=== PATIENT | female | born 1935 | race Caucasian/White ===

== ENCOUNTER 2016-04-18 08:00 | Emergency (ER) | payer OTHER, BC ==
[2016-04-18] MEDS ORDERED: CYCLOBENZAPRINE 10 MG TABLET PO ONE ×2 (08:10→08:14)
[2016-04-18] MEDS ORDERED: ACETAMINOPHEN 500 MG TABLET PO ONE ×2 (08:10→08:14)
[2016-04-18 08:11] VITALS: RESP 18; TEMP 96.1
--- NOTE | 2016-04-18 08:17 | PDOC ---
Fall HPI - General Chief Complaint: Fall Stated Complaint: LEFT SHOULER PAIN/RADIATING UP TO NECK Date Seen by Provider: 04/18/16 Time Seen by Provider: 08:11 Source: POSITIVE: Patient Exam Limitations: POSITIVE: No limitations Nurse's Notes Reviewed & Considered: Yes - History of Present Illness Initial Comments: Ms Mata is a very nice 81 year old woman who suffered a mechanical fall 1 week ago in her home, she lost her footing and fell forward onto the counter, her left shoulder landing in a gutierrez of burritos. She did not hit her head, she did not lose consciousness, but has had aching pain to the left shoulder ever since. She has no numbness, no tingling, no weakness to her left arm. She takes aspirin for the pain, which helps slightly. The pain is mostly in the anterior shoulder, but is now over the top of the shoulder radiating into the muscles of her neck. She was shovelling snow off her walkways the next day after her fall. Have you received a tetanus shot in the past 10 years?: Unknown - Patient Home Medications Home Medications: Home Medications Calcium 600 + Vit D 400 Caplet 1 each PO BID tab 05/06/11 Gluc Juan/MSM/Magnesium/Vit C [Glucosamine Complex-Msm Cap] 1 each PO BID cap 04/02 Multivit with Calcium,Iron,Min [Women's One Daily] 1 tab ORAL QD tab 05/06/11 Aspirin [[place] Aspirin] 81 mg PO DAILY tab 05/20/13 Ibandronate Sodium [Boniva] 3 mg IV [id number] ml 04/12/14 Cyclobenzaprine HCl [Flexeril] 10 mg PO TID PRN #30 tab 04/18/16 - Patient Allergies Allergies/Adverse Reactions: Allergies Allergy/AdvReac Type Severity Reaction Status Date / Time No Known Allergies Allergy Verified 04/18/16 08:05 Past Medical History - heen HEENT History: Cataracts Cardiovascular History: Other (please comment) Additional Cardiovasular History: LVH/DIASTOLIC DYSFORMATION/ MITRAL INSUFFICIENCY/ 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 FEELS BETTER NOW Gastrointestinal History: Denies History Genitourinary History: Denies History Additional Genitourinary History: INGESTED KEROSENE IN 1938, RENAL DAMAGE Endocrine History: Denies History Musculoskeletal History: Arthritis, Osteoporosis Prosthesis or Implant: No Neurological History: TIA Blood Disorders: Denies History Psychiatric History: Denies History History of Sexually Transmitted Diseases: No Cancer History: Denies History History of MDRO: No History of Other Communicable Diseases: No Alcohol Use: Rarely Substance Use Type: None Previous Surgical History: Yes Type / Date of Surgery: TONSILLECTOMY Anesthesia Reactions: No Malignant Hyperthermia: No Significant Family History: Heart disease, Cancer Past Medical History Reviewed: Reviewed - No Changes ROS - Limitations ROS Limitations: No Limitations Constitution: REPORTS: Denies Symptoms Cardiovascular: REPORTS: Denies Cardiac Symptoms Respiratory: REPORTS: Denies Resp Symptoms Neurological: REPORTS: Denies Neuro Symptoms Gastrointestinal: REPORTS: Denies GI Symptoms Endocrine: REPORTS: Denies Symptoms Musculoskeletal: REPORTS: Other (as in HPI) Eyes: REPORTS: Denies Symptoms ENT: REPORTS: Denies Symptoms Skin: REPORTS: Denies Skin Symptoms Fall Physical Exam - General Appearance General Appearance: POSITIVE: Alert, Cooperative, No Acute Distress - HEENT HEENT: POSITIVE: Head Inspection Nml, Eyes Inspection Nml, Ears Inspection Nml, PERRL, EOMI - Neck Neck: POSITIVE: Other (no midline C spine tenderness. full neck range of motion. very mild tenderness to palpation in the left trapezius muscle, no deformity) - Respiratory / CVS Respiratory / CVS: POSITIVE: Chest Non Tender, Breath Sounds Normal, No Respiratory Distress, Heart Sounds Normal, Regular Rate/Rhythm Peripheral Pulses: Radial (R): 2+, Radial (L): 2+ - Abdomen Abdomen: Denies Tenderness: (All Quadrants), No Distention: (All Quadrants) - Neuro / Psych Neuro / Psych: POSITIVE: Oriented X3, Motor Normal, Sensation Normal, Mood Appropriate - Skin Skin: POSITIVE: Other (no abrasion, laceration, or bruising overlying the left shoulder) - Extremities Additional Extremities Details: The left shoulder joint has no swelling, erythema, or excessive warmth. She has full active range of motion to her left shoulder, including internal/external rotation, abduction, adduction, flexion and extension. 5/5 strength to R shoulder, R elbow, and R kettleman Fall Progress - Results Reviewed by me Xrays/CTs/US Reviewed by me: Yes - Patient's Progress MDM / ED Course: Ms Mata is a 81 year old woman with an acute mild soft-tissue injury to her left shoulder with no underlying evidence of radiographic damage to the bones. the ligaments appear intact. We gave a dose of flexeril, a dose of tylenol, and an icepack to the area. Upon reassessment, her symptoms had improved. Patient Care Time - Estimated PCT Patient Care Time (In Minutes): 10 Vital Signs - Recent Vital Signs Vital Signs: Vital Signs (Last 8 hours) Temp Pulse Resp BP Pulse Ox 04/18/16 08:00 96.1 F L 75 18 125/83 97 - VS Reviewed Vital Signs Reviewed: Yes Discharge Clinical Impression: Shoulder pain, left Qualifiers: Chronicity: acute Qualifier Code: (M25.512) Pain in left shoulder Discharge Disposition: Discharged to Home Condition: Fair Prescriptions / Orders: Cyclobenzaprine HCl [Flexeril] 10 mg PO TID PRN #30 tab PRN Reason: Pain Patient Instructions Given at Discharge: Shoulder Pain (ED) Additional Instructions: Your Xray was normal. Your ligaments appear intact. You likely bruised the muscle and soft tissue of your shoulder and left side of your neck. Take 500 mg acetaminophen every 6 hours, take the 10mg flexeril three times a day as needed on top of that. Ice packs and gentle range of motion movements will help as well. Follow Up With: TAVO VAZQUEZ [Primary Care Provider] -
--- NOTE | 2016-04-18 09:35 | DI ---
LEFT SHOULDER, 04/18/2016 8:10 AM: Clinical History: Pain. Previous Exam: None at this facility. 3 views are submitted. There is no acute soft tissue, osseous, or joint abnormality. On the glenoid f heydi projection, there is a calcification in the soft tissues overlying the greater tuberosity in thi s is probably in the rotator cuff consistent with calcific tendinitis. The visualized portions of the left lung and apex are normal. Readin. No acute abnormality is present. 2. Calcification near the greater tuberosity consistent with calcific tendinitis.
== END 2016-04-18 08:45 | disposition home or self-care (01) ==
LOC: ER 08:00
DX: M25.512 Pain in left shoulder (principal); M54.2 Cervicalgia; W01.198A Fall on same level from slipping, tripping and stumbling with subsequent striking against other object, initial encounter
CPT/HCPCS: 73030; 99282

== ENCOUNTER → 2016-04-22 | Outpatient (CLI) | payer OTHER, BC ==
[2016-04-22 09:33] LABS: HEMOGLOBIN A1C 5.61 % (4.2-6.0); MEAN BLOOD GLUCOSE (CALC) 100.813 mg/dL
[2016-04-22 09:39] LABS: BILIRUBIN,TOTAL 0.4 mg/dL (0.3-1.2); BUN/CREATININE RATIO 21.11 (6-20); CALCIUM 10.4 mg/dL (8.7-10.7); CREATININE 0.9 mg/dL (0.50-1.20); LDL CHOLESTEROL,CALCULATED 70.2 mg/dL; MAGNESIUM 1.8 mg/dL (1.6-2.4); PHOSPHORUS 3.9 mg/dl (2.4-4.3); POTASSIUM 4.1 meq/L (3.8-5.2); TOTAL PROTEIN 7.7 g/dL (6.1-8.0)
[2016-04-22 10:03] LABS: FREE T4 (FREE THYROXINE) 1.24 ng/dL (0.93-1.71)
== END ==
LOC: LAB 09:07
PROVIDERS: ATTEND Family Medicine
DX: M81.0 Age-related osteoporosis without current pathological fracture (principal); R94.6 Abnormal results of thyroid function studies; Z79.83 Long term (current) use of bisphosphonates
CPT/HCPCS: 36415; 80053; 80061; 83036; 83735; 84100; 84439; 84443

== ENCOUNTER → 2016-04-23 | Outpatient (CLI) | payer OTHER, BC | LOC: MMPC 09:00 | PROVIDERS: ATTEND Family Medicine | DX: M81.0 Age-related osteoporosis without current pathological fracture (principal) | CPT/HCPCS: G0463; J1740 ==

== ENCOUNTER → 2016-07-17 | Outpatient (CLI) | payer OTHER, BC ==
[2016-07-17 09:19] LABS: MAGNESIUM 1.9 mg/dL (1.6-2.4); PHOSPHORUS 4.3 mg/dl (2.4-4.3)
[2016-07-17 09:20] LABS: BUN/CREATININE RATIO 25.55 (6-20); CALCIUM 10.1 mg/dL (8.7-10.7)
== END ==
LOC: LAB 08:49
PROVIDERS: ATTEND Family Medicine
DX: M81.0 Age-related osteoporosis without current pathological fracture (principal)
CPT/HCPCS: 36415; 80048; 83735; 84100

== ENCOUNTER → 2016-07-23 | Outpatient (CLI) | payer OTHER, BC | LOC: MMPC 09:00 | PROVIDERS: ATTEND Family Medicine | DX: M81.0 Age-related osteoporosis without current pathological fracture (principal) | CPT/HCPCS: G0463; J1740 ==